=== PATIENT | male | born 1955 | race Caucasian/White ===

== ENCOUNTER 2017-05-02 15:51 | Emergency (ER) | payer OTHER ==
[~2017-05-02] VITALS: Ht 185.4 cm; Wt 125.6 kg
[2017-05-02 17:10] LABS: HEMATOCRIT 42.2 % (38.0-50.0); MCH 33.8 PG (29.0-34.0); MCHC 33.4 G/DL (30.0-36.0); MCV 101.2 FL (86-99); MEAN PLAT.VOLUME 8.5 uM^3 (9.0-12.4); PLATELET COUNT 152 K/uL (156-360); RBC DIS.WIDTH-CV 12.8 % (11.8-14.6); RBC DIS.WIDTH-SD 46.8 % (39-53); RED BLOOD COUNT 4.17 M/uL (4.00-5.50)
[2017-05-02 17:19] LABS: CHLORIDE 101 mEq/L (99-109); POTASSIUM 5.2 mEq/L (3.7-5.4); SODIUM 134 mEq/L (136-147)
[2017-05-02 17:20] LABS: GLUCOSE 108 mg/dL (70-99)
[2017-05-02 17:22] LABS: ANION GAP 4 MEQ/L (2-14)
[2017-05-02 17:25] LABS: UREA NITROGEN (BUN) 19 mg/dL (9-23)
[2017-05-02 17:27] LABS: GFR ESTIMATE (CALCULATED) > 59 mL/min/
[2017-05-02 18:16] LABS: ADD MIUA? YES; BILIRUBIN NEGATIVE; BLOOD MODERATE; COLOR AMBER ((YELLOW)); GLUCOSE (STRIP) NEGATIVE; KETONES NEGATIVE; LEUKOCYTES NEGATIVE; NITRITE POSITIVE; PROTEIN (STRIP) NEGATIVE; SPECIFIC GRAVITY 1.015 (1.000-1.030)
[2017-05-02 18:22] LABS: BACTERIA NONE SEEN /HPF; EPITHELIAL CELLS RARE /HPF; HYALINE CASTS 40-50 /LPF; MUCUS TRACE /LPF; RED BLOOD CELLS 15-20 /HPF (0-5); UCUL ADDED? NO; WHITE BLOOD CELLS 0-5 /HPF (0-5)
[2017-05-02] MEDS ORDERED: BACTRIM,SEPT1 TABLET PO (18:26)
[2017-05-02] MEDS ORDERED: DILAUDID2 MG PO (18:26)
[2017-05-02 20:00] VITALS: BP 142/87
== END 2017-05-02 20:03 | disposition home or self-care (01) ==
LOC: EME 15:51
DX: S20.212A Contusion of left front wall of thorax, initial encounter (principal); W18.12XA Fall from or off toilet with subsequent striking against object, initial encounter; Y92.002 Bathroom of unspecified non-institutional (private) residence as the place of occurrence of the external cause; N39.0 Urinary tract infection, site not specified; Z85.46 Personal history of malignant neoplasm of prostate; Z92.3 Personal history of irradiation; Z95.1 Presence of aortocoronary bypass graft; Z79.01 Long term (current) use of anticoagulants; Z72.0 Tobacco use
CPT/HCPCS: 71100; 80048; 81003; 85027; 99281; 99284